=== PATIENT | male | born 1945 | race Two or more races ===

== ENCOUNTER 2023-06-23 10:54 | Emergency (ER) | payer MEDICARE, OTHER ==
[~2023-06-23] VITALS: Ht 180.3 cm; Wt 85.0 kg
[2023-06-23 10:57] VITALS: O2SAT 96
[2023-06-23 16:27] VITALS: BP 145/97; PULSE 60; RESP 18; TEMP 98.4
== END 2023-06-23 16:28 | disposition home or self-care (01) ==
LOC: ER 10:54
DX: M79.605 Pain in left leg (principal); E11.9 Type 2 diabetes mellitus without complications; I10 Essential (primary) hypertension
CPT/HCPCS: 99283